=== PATIENT | female | born 1980 | race Caucasian/White ===

== ENCOUNTER 2020-01-06 20:00 | Inpatient (IN) | payer BC ==
[2020-01-06] MEDS ORDERED: OXYTOCIN 30 UNITS in 0.9% NS 30 UNIT/500 ML INFUS.BAG IVPB ONE (21:01)
[2020-01-06 21:09] LABS: BASO % 0.4 % (0-2.0); EOS % 1.2 % (0-4.5); HEMATOCRIT 31.9 % (32.4-45.2); HEMOGLOBIN 11.2 GM/dL (10.7-15.3); LYMPH % 28.5 % (8-40); MCH 32.6 pg (25.7-33.7); MCHC 35.1 g/dl (32.0-36.0); MEAN PLT VOLUME 9.5 fl (7.5-11.1); MONO % 6.9 % (3.8-10.2); PLATELET COUNT 222 K/MM3 (134-434); RBC 3.43 M/mm3 (3.60-5.2); RDW 12.4 % (11.6-15.6); WHITE BLOOD COUNT 8.3 K/mm3 (4.0-10.0)
[2020-01-06 21:15] LABS: INR 0.85 (0.83-1.09)
[2020-01-06] MEDS ORDERED: OXYTOCIN 30 UNITS in 0.9% NS 30 UNIT/500 ML INFUS.BAG IVPB SCH (21:15)
[2020-01-06] MEDS ORDERED: ELECTROLYTE-148 SOLN 1,000 ML IV SCH (21:15)
--- NOTE | 2020-01-06 21:17 | HP ---
Past Medical History - Primary Care Physician PCP:: Gabriela Harper - Admission Chief Complaint: 39 yo LMP unknown 04/2019 EDC 01/18/2020 by first trimester sono. EGA 38.2 wks scheduled for Induction of labor due to placenta abnormalities - aging. History of Present Illness: 39 yo LMP unknown 04/2019 EDC 01/18/2020 by first trimester sono EGA 38.2 wks scheduled for Induction of labor due to placenta abnormalities - aging. History Source: Patient Limitations to Obtaining History: No Limitations - Past Medical History ...: 2 ...Para: 1 ...Term: 0 ...LMP: 04/04/19 (unknown) ... Weeks Gestation by Dates: 38.2 ...EDC by Sono: 01/18/20 - Past Surgical History Hx Myomectomy: No Hx Transabdominal Cerclage: No Additional Surgical History: LEEP - HGSIL - Smoking History Smoking history: Never smoked Have you smoked in the past 12 months: No - Alcohol/Substance Use Hx Alcohol Use: No History of Substance Use: reports: None - Social History Usual Living Arrangement: Yes: With Spouse History of Recent Travel: No Home Medications - Allergies Allergies/Adverse Reactions: Allergies Allergy/AdvReac Type Severity Reaction Status Date / Time No Known Allergies Allergy Verified 01/06/20 21:17 Family Medical History Other Family History: mother - : pancreatic cancer. Father - lung cancer Review of Systems - Review of Systems Constitutional: reports: No Symptoms Eyes: reports: No Symptoms HENT: reports: No Symptoms Neck: reports: No Symptoms Cardiovascular: reports: No Symptoms Respiratory: reports: No Symptoms Gastrointestinal: reports: No Symptoms Genitourinary: reports: No Symptoms, Pain Breasts: reports: No Symptoms Reported Musculoskeletal: reports: No Symptoms Integumentary: reports: No Symptoms Neurological: reports: No Symptoms Endocrine: reports: No Symptoms Hematology/Lymphatic: reports: No Symptoms Psychiatric: reports: No Symptoms Physical Exam - Maternity Constitutional: Yes: Well Nourished, No Distress Eyes: Yes: WNL HENT: Yes: WNL Neck: Yes: WNL Cardiovascular: Yes: WNL Breast(s): Yes: WNL - Abdominal Exam/OB Fundal Height: 38 Number of Fetuses: Single Presentation: Vertex Contractions: No Regularity: Irritability Intensity: Unaware Monitor Mode: External Heart Rate Location: [facility] [place] Category: I Accelerations: Uniform Decelerations: None - Vaginal Exam/OB Vaginal Bleeding: No Dilatation (cm): 2 Effacement (%): 80 Amniotic Membrane Status: Intact Presentation: Vertex/Position Station: -1 - Physical Exam Musculoskeletal: Yes: WNL Extremities: Yes: WNL Edema: No Integumentary: Yes: WNL Deep Tendon Reflex Grade: Normal +2 ...Motor Strength: WNL Psychiatric: Yes: WNL Hemorrhage Risk Assessment - Risk Factors Risk Score: 1 Risk Level: Medium Risk Problem List - Problems (1) AMA (advanced maternal age) multigravida 35+ Code(s): O09.529 - SUPERVISION OF ELDERLY MULTIGRAVIDA, UNSPECIFIED TRIMESTER (2) Placental abnormality in third trimester Code(s): O43.103 - MALFORMATION OF PLACENTA, UNSPECIFIED, THIRD TRIMESTER (3) 38 weeks gestation of Code(s): Z3A.38 - 38 WEEKS GESTATION OF Assessment/Plan Admit to LD Induction of labor - pitocin augmentation
[2020-01-06 21:42] LABS: BLOOD UREA NITROGEN 8.9 mg/dL (7-18); CALCIUM 8.5 mg/dL (8.5-10.1); CREATININE 0.5 mg/dL (0.55-1.3); POTASSIUM 3.3 mmol/L (3.5-5.1)
[2020-01-07 00:38] VITALS: BMI 29.2
--- NOTE | 2020-01-07 01:03 | PN ---
Progress Note (short form) - Note Progress Note: Pt c/o mild UC VSS,afebrile EFM 140 bpm, reactive, cat 1, no decel TOCO UC q 3-4 min A/P close observation Problem List - Problems (1) AMA (advanced maternal age) multigravida 35+ Code(s): O09.529 - SUPERVISION OF ELDERLY MULTIGRAVIDA, UNSPECIFIED TRIMESTER (2) Placental abnormality in third trimester Code(s): O43.103 - MALFORMATION OF PLACENTA, UNSPECIFIED, THIRD TRIMESTER (3) 38 weeks gestation of Code(s): Z3A.38 - 38 WEEKS GESTATION OF
[2020-01-07] MEDS ORDERED: PCA PUMP NR ONE (01:58)
[2020-01-07] MEDS ORDERED: FENTANYL/BUPIVACAINE/NS/PF - PCEA - 50 ML DISP.SYRIN EP ONE (01:59)
--- NOTE | 2020-01-07 01:59 | PN ---
Progress Note (short form) - Note Progress Note: Pt c/o moderate pain with UC VSS,afebrile EFM 140 bpm, reactive, cat 1, no decel TOCO UC q 3-4 min VE - 4 cm, 90%, -1 Vtx, IM A/P close observation Epidural anesthesia Problem List - Problems (1) AMA (advanced maternal age) multigravida 35+ Code(s): O09.529 - SUPERVISION OF ELDERLY MULTIGRAVIDA, UNSPECIFIED TRIMESTER (2) Placental abnormality in third trimester Code(s): O43.103 - MALFORMATION OF PLACENTA, UNSPECIFIED, THIRD TRIMESTER (3) 38 weeks gestation of Code(s): Z3A.38 - 38 WEEKS GESTATION OF
[2020-01-07] MEDS ORDERED: NALOXONE HCL 0.4 MG/ML VIAL IVPUSH PRN (02:04)
[2020-01-07] MEDS ORDERED: BUPIVACAINE HCL/PF 0.25% (2.5MG/ML) 10 ML VIAL ONE (02:06)
[2020-01-07] MEDS: FENTANYL/BUPIVACAINE/NS/PF - PCEA - 50 ML DISP.SYRIN EP SCH (02:15)
--- NOTE | 2020-01-07 05:02 | PN ---
Progress Note (short form) - Note Progress Note: Pt's comfortable no pain VSS,afebrile EFM 140 bpm, reactive, cat 1, no decel TOCO UC q 3-4 min VE - 4 cm, 90%, -1 Vtx, AROM - clear fluid A/P close observation Problem List - Problems (1) AMA (advanced maternal age) multigravida 35+ Code(s): O09.529 - SUPERVISION OF ELDERLY MULTIGRAVIDA, UNSPECIFIED TRIMESTER (2) Placental abnormality in third trimester Code(s): O43.103 - MALFORMATION OF PLACENTA, UNSPECIFIED, THIRD TRIMESTER (3) 38 weeks gestation of Code(s): Z3A.38 - 38 WEEKS GESTATION OF
[2020-01-07] MEDS ORDERED: OXYTOCIN 20 UNITS in 0.9% NS 20 UNIT/1,000 ML INFUS.BAG IV ONE (06:18)
[2020-01-07] MEDS ORDERED: METHYLERGONOVINE MALEATE 0.2 MG/1 ML AMP IM PRN (07:03)
[2020-01-07] MEDS ORDERED: BISACODYL 10 MG SUPP.RECT RC PRN (07:03)
--- NOTE | 2020-01-07 07:03 | PN ---
Delivery - Delivery Vaginal Delivery: No Problems, Spontaneous Type of Anesthesia: Epidural Episiotomy/Laceration: Right Mediolateral EBL (cc): 400 Delivery, Single - Stages of Labor Placenta: Yes: Spontaneous - Condition of Environmental Services Tech/Home Advisor Present: No Gender: Female Position: OA - 1 Minute Total Score: 9 5 Minutes Total Score: 9 10 Minutes Total Score: 10 - Feeding Plan Initial Plan: Elected not to breastfeed exclusively throughout hospitalization Benefits of Exclusively reinforced: Yes Remarks - Remarks Remarks: rml performed baby girl can x 1 cord gases and blood collected 2-0chromic used to repair the episiotomy placenta and membranes complete
[2020-01-07] MEDS ORDERED: BENZOCAINE 20% 57 GM BOTTLE TP SCH (07:15)
[2020-01-07] MEDS ORDERED: OXYTOCIN 20 UNITS in 0.9% NS 20 UNIT/1,000 ML INFUS.BAG IV SCH ×2 (07:15→09:00)
[2020-01-07] MEDS ORDERED: BENZOCAINE 28 GM HEMORRHOIDAL OINTMENT TP SCH (07:15)
[2020-01-07] MEDS ORDERED: WITCH HAZEL 50% (TUCKS) 40 PAD/JAR PAD TP SCH (07:15)
[2020-01-07 08:44] LABS: CORD BASE EXCESS -10.2 mmol/L (0-2); CORD HCO3 14.3 mmHg (20-29); CORD PCO2 28.1 mmHg (30-78); CORD pH 7.323 (7.14-7.44)
[2020-01-07 08:46] LABS: CORD HCO3 20.7 mmHg (20-29); CORD PCO2 40.6 mmHg (30-78); CORD pH 7.325 (7.14-7.44)
[2020-01-07] MEDS: FERROUS SO4 325 MG TABLET (FP) PO SCH ×3 (09:06→18:17)
[2020-01-07] MEDS: DOCUSATE SODIUM 100 MG CAPSULE (FP) PO SCH ×2 (09:06→22:09)
[2020-01-07] MEDS: ACETAMINOPHEN 325 MG TABLET (FP) PO PRN ×3 (09:07→22:09)
[2020-01-07] MEDS: IBUPROFEN 600 MG TABLET (FP) PO PRN ×2 (09:07→22:09)
[2020-01-08 08:16] LABS: BASO % 0.6 % (0-2.0); EOS % 1.6 % (0-4.5); HEMATOCRIT 26.7 % (32.4-45.2); LYMPH % 23.2 % (8-40); MCH 31.5 pg (25.7-33.7); MCHC 33.7 g/dl (32.0-36.0); MEAN CELL VOLUME 93.6 fl (80-96); MEAN PLT VOLUME 9.5 fl (7.5-11.1); MONO % 5.9 % (3.8-10.2); NEUT % 68.7 % (42.8-82.8); PLATELET COUNT 181 K/MM3 (134-434); RBC 2.85 M/mm3 (3.60-5.2); WHITE BLOOD COUNT 8.9 K/mm3 (4.0-10.0)
[2020-01-08] MEDS: FERROUS SO4 325 MG TABLET (FP) PO SCH ×3 (08:28→16:56)
[2020-01-08] MEDS: DOCUSATE SODIUM 100 MG CAPSULE (FP) PO SCH ×2 (09:48→21:19)
[2020-01-08] MEDS: IBUPROFEN 600 MG TABLET (FP) PO PRN ×2 (09:51→21:19)
[2020-01-08] MEDS: ACETAMINOPHEN 325 MG TABLET (FP) PO PRN ×2 (09:52→21:18)
[2020-01-08] MEDS ORDERED: FLU VACCINE (FLULAVAL) PF 60 MCG/0.5 ML SYRINGE 2020-2021 IM ONE (10:00)
[2020-01-08] MEDS ORDERED: DIPHTH,PERTUSS(ACELL),TET 0.5 ML DISP.SYRIN IM ONE (10:00)
--- NOTE | 2020-01-08 10:30 | PN ---
Progress Note (short form) - Note Progress Note: asked by Dr. Harper to see pt as she will not be able to come this am pt. without complaints other than some cramping and a little tired. vss -af abd: soft, nt, nd, fundus firm ve: min lochia ext: no calf tenderness b/l a/p ppd 1 s/p pt stable diet, act as meli cbc today further mgmt per Dr. Harper
[2020-01-09] MEDS: FENTANYL/BUPIVACAINE/NS/PF - PCEA - 50 ML DISP.SYRIN EP SCH ×2 (07:08→07:09)
[2020-01-09 09:13] VITALS: BP 100/48; PULSE 53; TEMP 97.9
[2020-01-09] MEDS: DOCUSATE SODIUM 100 MG CAPSULE (FP) PO SCH (09:30)
[2020-01-09] MEDS: ACETAMINOPHEN 325 MG TABLET (FP) PO PRN (09:30)
[2020-01-09] MEDS: FERROUS SO4 325 MG TABLET (FP) PO SCH ×2 (09:30→11:58)
[2020-01-09] MEDS: IBUPROFEN 600 MG TABLET (FP) PO PRN (09:31)
--- NOTE | 2020-01-09 10:54 | DS ---
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 Vital Signs: Vital Signs Temperature 97.9 F 01/09/20 09:12 Pulse Rate 53 L 01/09/20 09:12 Respiratory Rate 17 01/09/20 09:12 Blood Pressure 100/48 L 01/09/20 09:12 O2 Sat by Pulse Oximetry (%) 98 01/09/20 09:12 Constitutional: Yes: Well Nourished, No Distress Eyes: Yes: WNL HENT: Yes: WNL Neck: Yes: WNL Cardiovascular: Yes: WNL Respiratory: Yes: WNL Gastrointestinal: Yes: WNL ...Rectal Exam: Yes: WNL Renal/: Yes: WNL Pelvis: Yes: WNL ....Post : Yes: Uterus firm, Uterus non-tender Breast(s): Yes: WNL Musculoskeletal: Yes: WNL Extremities: Yes: WNL Edema: No Integumentary: Yes: WNL Neurological: Yes: WNL ...Motor Strength: WNL Psychiatric: Yes: WNL Labs: CBC, BMP 01/08/20 07:35 01/06/20 20:41 Delivery - Delivery Vaginal Delivery: No Problems, Spontaneous Type of Anesthesia: Local, Epidural Episiotomy/Laceration: Right Mediolateral EBL (cc): 400 Delivery, Single - Stages of Labor Date 1st Stage Initiatied: 01/07/20 Time 1st Stage Initiated: 00:00 Date 2nd Stage Initiated: 01/07/20 Time 2nd Stage Initiated: 06:00 Date of Delivery: 01/07/20 Time of Delivery: 06:29 Time Placenta Delivered: 06:35 Placenta: Yes: Spontaneous - Condition of Baseball Club Manager/Continuous Drier Operator Present: No Infant Gender: Female Weight: 3.345 kg Position: OA - 1 Minute Total Score: 9 5 Minutes Total Score: 9 10 Minutes Total Score: 10 - Feeding Plan Initial Plan: Elected not to breastfeed exclusively throughout hospitalization Benefits of Exclusively reinforced: Yes Discharge Summary Problems reviewed: Yes Current Active Problems 38 weeks gestation of (Acute) AMA (advanced maternal age) multigravida 35+ (Acute) Placental abnormality in third trimester (Acute) Plan of Treatment: Discharge today regular diet breast feeding Condition: Good - Instructions Diet, Activity, Other Instructions: regular Disposition: HOME
== END 2020-01-09 14:25 | disposition home or self-care (01) | DRG 807 ==
LOC: JLDR 20:00 → J3W 01-07 08:48
PROVIDERS: ADMIT Obstetrics & Gynecology; ATTEND Obstetrics & Gynecology
PROC: 10E0XZZ Delivery of Products of Conception, External Approach (ICD-10-PCS; principal; 2020-01-07)
PROC: 0W8NXZZ Division of Female Perineum, External Approach (ICD-10-PCS; 2020-01-07)
DX: O43.93 Unspecified placental disorder, third trimester (principal); Z3A.38 38 weeks gestation of pregnancy; Z37.0 Single live birth
CPT/HCPCS: 36415; 36600; 59409; 80048; 82803; 85025; 85610; 85730; 86780; 86850; 86900; 86901; 90715; Q2036; U0003